=== PATIENT | male | born 2000 | race Caucasian/White ===

== ENCOUNTER 2022-08-23 05:36 | Emergency (ER) | payer BC ==
[~2022-08-23] VITALS: Ht 172.7 cm; Wt 63.5 kg
[2022-08-23 05:40] VITALS: BP 139/72
--- NOTE | 2022-08-23 05:40 | NUR ---
TO BED AMBULATORY
[2022-08-23] MEDS ORDERED: BACITRACIN OINT 500 UNITS/GM PKT TP ONE ×2 (06:20→07:27)
[2022-08-23] MEDS ORDERED: LIDOCAINE 1% 500 MG/ 50 ML VIAL INJ ONE (06:20)
--- NOTE | 2022-08-23 06:30 | NUR ---
pt went to restroom
[2022-08-23] MEDS ORDERED: LIDOCAINE MPF 1% 5 ML ONE (06:31)
--- NOTE | 2022-08-23 06:35 | NUR ---
pt went to ct
--- NOTE | 2022-08-23 06:54 | NUR ---
at the bedside doing procedure
--- NOTE | 2022-08-23 07:26 | NUR ---
REPORT RECEIVED FROM IFEOMA RODRÍGUEZ. ASSUMED CARE AT THIS TIME
--- NOTE | 2022-08-23 07:26 | NUR ---
Edd carmen in [facility] - 08/23/22 at 0747 by [id number] REPORT RECEIVED FROM IFEOMA BELLO ASSUMED CARE AT THIS TIME
--- NOTE | 2022-08-23 07:30 | NUR ---
pt awake and at rest. sutures x6 in place . pending xray results
[2022-08-23 09:00] VITALS: BP 130/72
--- NOTE | 2022-08-23 09:00 | NUR ---
Patient discharged with v/s stable. Written and verbal after care instructions FOR CONTUSION, CONCUSSION AND LAC CARE given and explained. Patient verbalized understanding. Ambulatory with steady gait. All questions addressed prior to discharge. Advised to follow up with PMD.
--- NOTE | 2022-08-23 09:02 | NUR ---
The patient's care was reviewed and supervised by ED Agency Nurse 9, RN, RN.
== END 2022-08-23 09:00 | disposition home or self-care (01) ==
LOC: MED 05:36
DX: S01.81XA Laceration without foreign body of other part of head, initial encounter (principal); S60.221A Contusion of right hand, initial encounter; S60.512A Abrasion of left hand, initial encounter; W19.XXXA Unspecified fall, initial encounter; Y93.89 Activity, other specified; Y92.89 Other specified places as the place of occurrence of the external cause; Y99.8 Other external cause status
CPT/HCPCS: 12011; 70450; 72125; 73130; 99285; J2001